=== PATIENT | female | born 1980 | race Two or more races ===

== ENCOUNTER 2022-11-29 14:33 | Emergency (ER) | payer MEDICAID ==
[~2022-11-29] VITALS: Ht 152.4 cm; Wt 56.4 kg
[2022-11-29 14:37] VITALS: TEMP 98.9
[2022-11-29] MEDS ORDERED: KETOROLAC TROMETHAMINE 60 MG/2 ML VIAL IM ONE (15:15)
[2022-11-29] MEDS ORDERED: METHOCARBAMOL 500 MG TABLET PO ONE (15:15)
[2022-11-29 18:14] VITALS: BP 106/68; PULSE 68; RESP 16
== END 2022-11-29 19:54 | disposition home or self-care (01) ==
LOC: EMS 14:43
DX: R51.9 Headache, unspecified (principal)
CPT/HCPCS: 99285; 70450; 93005; 96372; J1885